=== PATIENT | male | born 1980 | race Caucasian/White ===

== ENCOUNTER 2018-06-18 11:20 | Emergency (ER) | payer SELFPAY ==
[2018-06-18] MEDS: TRIMETHOPRIM/SULFAMETHOX (DS) TAB PO (11:50)
== END 2018-06-18 11:51 | disposition home or self-care (01) ==
LOC: FTE 11:20
DX: L73.9 Follicular disorder, unspecified (principal)
CPT/HCPCS: 99283